=== PATIENT | male | born 1955 | race Hispanic/Latino ===

== ENCOUNTER 2017-12-18 12:44 | Outpatient (CLI) | payer MEDICARE, BC ==
--- NOTE | 2017-12-18 15:20 | MRI ---
CERVICAL SPINE MRI NONCONTRAST: Date: 12/18/17 COMPARISON: 10/08/13. INDICATION: Cervical radiculopathy. FINDINGS: There is no acute marrow edema. There is slight reversal of normal cervical curvature. Degenerative hypertrophy at the C1-2 level is present with mild effacement of the ventral CSF. C2-3: Disc osteophyte results in mild narrowing of the central canal. There is mild bilateral neural forami nal narrowing. C3-4: There is a moderate sized disc extrusion with cephalad migration of disc material, which is broad bas ed and effaces and mildly flattens the ventral aspect of the cervical spinal cord, with moderate cent ral canal stenosis. There is moderate narrowing of each neural foramen. C4-5: Mild to moderate central canal stenosis as a result of broad based disc osteophyte. Bilateral uncinat e process hypertrophy is present with moderate left and mild to moderate right neural foraminal narro wing. C5-6: Broad based disc osteophyte, asymmetric to the right, with superimposed right subarticular disc protr usion results in moderate central canal stenosis and associated cord flattening. Moderate biforaminal stenosis. C6-7: No high grade central canal or foraminal stenosis. C7-T1: No high grade central canal or neural foraminal stenosis. Evaluation of the cervical spine cord reveals no significant, intrinsic cord signal abnormality. IMPRESSION: Multilevel cervical spine degenerative change is again demonstrated, which is most pronounced at the C3-4 level, with a prominent sized cephalad disc extrusion, broad based, which has increased in volum e since prior exam, 10/08/13. This does result in ventral cord effacement. Multilevel central canal a nd neural foraminal compromise are present, as outlined above. POS: YUNIER
== END 2017-12-18 12:45 | disposition home or self-care (01) ==
LOC: TBSIIMAG 12:44
PROVIDERS: ATTEND Neurological Surgery
DX: M47.22 Other spondylosis with radiculopathy, cervical region (principal); M99.81 Other biomechanical lesions of cervical region; M48.02 Spinal stenosis, cervical region; M50.11 Cervical disc disorder with radiculopathy, high cervical region
CPT/HCPCS: 72141

== ENCOUNTER 2018-01-11 09:15 | Inpatient (IN) | payer MEDICARE, BC ==
[2018-01-11 10:30] VITALS: BMI 39.7
[2018-01-15] MEDS ORDERED: Midazolam HCl 2 mg/2 ml Vial ONE (06:38)
[2018-01-15] MEDS ORDERED: Fentanyl 250 MCG/5 ML VIAL ONE (06:38)
[2018-01-15] MEDS ORDERED: Sodium Chloride 0.9% 10 ML ONE (06:40)
[2018-01-15] MEDS ORDERED: Levofloxacin 500 mg/D5W 100 ml Premix Bag ONE (06:41)
[2018-01-15] MEDS ORDERED: Clindamycin/D5W 900 mg/50 ml Premix Bag ONE (06:41)
--- NOTE | 2018-01-15 08:28 | OP ---
DATE OF PROCEDURE: 01/15/2018 SURGEON: Elmer Pino M.D. POWER SHOVEL MECHANIC: Jhonathan Concepcion PA-C PROCEDURES PERFORMED: Anterior cervical diskectomy C3-C6, interbody arthrodesis, intervertebral biom echanical device, local morselized autograft, demineralized bone matrix, anterior titanium instrument ation C3-C6. DESCRIPTION OF PROCEDURE: The patient was brought to the operating room and intubated. He was posit ioned supine with the head in modest extension on a gel-filled donut. Incision was made exposing C3- C6 and the level was confirmed by x-ray. We completely removed the C3-C4, C4-C5 and C5-C6 discs deco mpressing at each level. At the C5-C6 level, particular attention was paid beneath the posterior akbar gitudinal ligament into the left C6 neural foramen. The bony endplates were then decorticated for th e purpose of arthrodesis and appropriately sized intervertebral biomechanical PEEK device was brought into the field, filled with demineralized bone matrix, local morselized autograft, and tapped into p lace securely at C3-C4, C4-C5 and C5-C6. Next, an anterior plate was brought into the field and secu red to C3, C4, C5, and C6 using two 14 mm screws at each level. The wound was then extensively irrig ated, immaculate hemostasis was secured, and the wound was closed in anatomic layers over a drain.
[2018-01-15] MEDS ORDERED: Ketorolac Tromethamine 30 MG/ML VIAL ONE (08:40)
[2018-01-15] MEDS ORDERED: Ondansetron HCl/PF 4 MG/2 ML Vial IVP PRN (08:43)
[2018-01-15] MEDS ORDERED: Promethazine HCl 25 MG/ML VIAL IM PRN (08:43)
[2018-01-15] MEDS ORDERED: Promethazine HCl 25 MG/ML VIAL SLOW IVP PRN (08:43)
[2018-01-15] MEDS ORDERED: Fentanyl 100 MCG/2 ML VIAL ONE ×2 (08:54→09:15)
[2018-01-15] MEDS ORDERED: Acetaminophen 325 MG TAB PO PRN (09:56)
[2018-01-15] MEDS ORDERED: Acetaminophen 650 MG Suppository PR PRN (09:56)
[2018-01-15] MEDS ORDERED: traMADol HCl 50 MG TAB PO PRN (09:56)
[2018-01-15] MEDS ORDERED: Morphine 4 MG/ML Carpuject SLOW IVP PRN (09:56)
[2018-01-15] MEDS: Morphine 4 MG/ML VIAL SLOW IVP PRN ×2 (10:15→16:52)
[2018-01-15] MEDS ORDERED: hydrALAZINE 20 MG/ML VIAL SLOW IVP PRN (12:31)
[2018-01-15] MEDS ORDERED: Labetalol HCl 100 MG/20 ML VIAL SLOW IVP PRN (12:31)
[2018-01-15] MEDS ORDERED: Eucerin (Mineral Oil/Petrolatum,White) 30 gm Jar TOP PRN (12:46)
[2018-01-15] MEDS ORDERED: Dextrose 5% in Water 1,000 ML IV PRN (12:47)
[2018-01-15] MEDS ORDERED: Insulin Regular 300 UNITS/3 ML VIAL SC PRN ×2 (12:47)
[2018-01-15] MEDS ORDERED: Dextrose 50% Abboject 50 ML SYRINGE SLOW IVP PRN (12:47)
[2018-01-15 13:15] LABS: Anion Gap 13 mmol/L (10-20); BUN (Urea Nitrogen) 21 mg/dL (8.4-25.7); Calc. Creatinine Clearance 118 mL/min (70-130); Calcium 9.1 mg/dL (7.8-10.44); Carbon Dioxide 25 mmol/L (23-31); Chloride 104 mmol/L (98-107); Estimated GFR-MDRD 74; Glucose 222 mg/dL (80-115); Potassium 5.2 mmol/L (3.5-5.1); Sodium 137 mmol/L (136-145)
--- NOTE | 2018-01-15 13:28 | PRG ---
DATE OF SERVICE: 01/15/2018 SUBJECTIVE: The patient is a 62-year-old male with diabetes, hypertension, and hyperlipidem ia, underwent an anterior cervical diskectomy by Dr. Pino this [facility] was consult ed for medical management. Patient follows Dr. michael Daley. He denies any complaints at this time ex cept for some discomfort over the surgical site. No chest pain, shortness of breath, palpitations re ported. PAST MEDICAL HISTORY: 1. Diabetes mellitus type 2. 2. Hypertension. 3. Hyperlipidemia. 4. Hospitalization at this facility in 2008 for pneumonia. 5. Obesity with a BMI 39.5. PAST SURGICAL HISTORY: 1. Bilateral shoulder surgery. 2. Knee surgery. ALLERGIES: The patient is allergic to PENICILLIN G. CURRENT HOME MEDICATIONS: Aspirin 81 mg daily; Lipitor 40 mg daily; gabapentin 300 mg b.i.d.; glimep iride 4 mg twice a day; 70/30, 25 units b.i.d.; lisinopril 40 mg daily; metformin 500 mg twice a day; tramadol as needed. SOCIAL HISTORY: The patient currently lives at home. Denies any current use of smoking, alcohol or drug use. He quit smoking in 2009. FAMILY HISTORY: Father with diabetes. Mother with stomach cancer. PHYSICAL EXAMINATION: VITAL SIGNS: Temperature 97.9, pulse rate of 93, respirations 16, blood pressure 125/76 with O2 satu ration 93% on 2 liter nasal cannula. GENERAL: A 62-year-old male in no apparent distress. LUNGS: Clear to auscultation bilaterally. HEART: S1, S2 present. Regular rate and rhythm. ABDOMEN: Soft, bowel sounds present. EXTREMITIES: No edema or calf tenderness. NEUROLOGICAL: Grossly nonfocal. LABORATORY AND IMAGING: EKG by my review showed sinus rhythm with left anterior fascicular block. C BC showed WBC 6.3 with hemoglobin 13.2, hematocrit 40.4, platelet count of 148. Chemistries showed s odium 139, potassium 5.6, chloride 106, bicarbonate 25, BUN 29, creatinine 1.08. IMPRESSION: 1. Diabetes mellitus type 2. We will continue glimepiride and metformin. We will change 70/30 insu marcelino to NPH during this hospital stay. 2. Hyperlipidemia. We will continue statins. 3. Hyperkalemia on the recent blood work. We will recheck base met. We will hold lisinopril for no w. We will add p.r.n. antihypertensives. 4. Hypertension. Plan as discussed above. 5. Chronic pain syndrome. We will continue gabapentin. 6. Obesity with a BMI at 39. Lifestyle modification emphasized. 7. Plan of care was discussed with the patient and the family at the bedside. They stated understan ding. Thank you Dr. Pino for this consultation. We will follow with you.
[2018-01-15] MEDS ORDERED: Metoclopramide HCl 10 MG/2 ML VIAL ONE (13:57)
[2018-01-15] MEDS ORDERED: Ondansetron HCl/PF 4 MG/2 ML Vial ONE (13:57)
[2018-01-15] MEDS ORDERED: Lidocaine 1% PF 5 ML VIAL ONE (13:57)
[2018-01-15] MEDS ORDERED: PROPOFOL 200 MG/20 ML VIAL ONE (13:57)
[2018-01-15] MEDS ORDERED: PHENYLEPHRINE-NS 100 MCG/ML 10 ML SYRINGE ONE (13:57)
[2018-01-15] MEDS: Clindamycin/D5W 900 MG in Premix Bag 1 BAG IVPB SCH ×2 (14:41→22:05)
[2018-01-15] MEDS: tiZANidine HCl 4 MG TAB PO PRN (14:42)
[2018-01-15] MEDS ORDERED: Insulin NPH/Reg Insulin Hm 300 UNITS/3 ML VIAL SC SCH ×2 (16:30→17:00)
[2018-01-15] MEDS: Senokot S 8.6-50 MG TAB PO SCH (16:45)
[2018-01-15] MEDS: metFORMIN 500 MG TAB PO SCH (16:45)
[2018-01-15] MEDS: Glimepiride 4 MG TAB PO SCH (16:45)
[2018-01-15] MEDS: Gabapentin 300 MG CAP PO SCH (20:03)
[2018-01-15] MEDS ORDERED: NPH, Human Insulin Isophane 300 UNIT/3 ML VIAL SC SCH (21:00)
[2018-01-16] MEDS: traMADol HCl 50 MG TAB PO PRN ×2 (02:07→10:06)
[2018-01-16 05:15] LABS: Potassium 5.6 mmol/L (3.5-5.1)
[2018-01-16] MEDS: Glimepiride 4 MG TAB PO SCH (06:13)
[2018-01-16] MEDS: tiZANidine HCl 4 MG TAB PO PRN (06:18)
--- NOTE | 2018-01-16 06:50 | DIS ---
DATE OF ADMISSION: 01/15/2018 DATE OF DISCHARGE: 01/16/2018 ATTENDING PHYSICIAN: Dr. Elmer Pino [facility] COURSE: The patient is a 62-year-old male status post C3-C6 ACDF for significant c ervical spondylosis. His postoperative course was uncomplicated. He was tolerating a regular diet, voiding appropriately, and ambulatory throughout the department. His ALESHIA drain put out 60 mL overnigh t and was removed the following morning. I am seeing the patient at the bedside this morning. He is awake, alert, comfortable, in no acute distress. He has a slightly hoarse voice. His incision is s oft and dry. He has free active range of motion of all extremities, 5/5 strength throughout. Sensat ion is intact to light touch. We will plan to dismiss the patient to home. I have discussed home care precautions. I provided him with scripts for [place] and Zanaflex. We will plan to follow up with him with his 2 week postoperati ve appointment.
[2018-01-16] MEDS ORDERED: Insulin NPH/Reg Insulin Hm 300 UNITS/3 ML VIAL SC SCH (08:00)
[2018-01-16] MEDS ORDERED: Atorvastatin Calcium 40 MG TAB PO SCH (09:00)
[2018-01-16] MEDS ORDERED: Amlodipine 5 MG TAB PO SCH (09:00)
[2018-01-16] MEDS ORDERED: Lisinopril 20 MG TAB PO SCH (09:00)
[2018-01-16] MEDS: metFORMIN 500 MG TAB PO SCH (09:51)
[2018-01-16] MEDS: Senokot S 8.6-50 MG TAB PO SCH (09:51)
[2018-01-16] MEDS: Gabapentin 300 MG CAP PO SCH (09:52)
--- NOTE | 2018-01-16 11:48 | PDOC.EVN ---
Event Note - Event Note Event Note: Pt seen and examined. Chart reviewed. repeat potassium still high. educated about holding Lisinopril and starting on new medication ,Amlodipine .prescription give. Encouraged to follow up w PCP as soon as possible. OK to Dc home from IM stand point. Advise repeat Potassium check in 1 week
[2018-01-16 12:24] VITALS: BP 112/74; TEMP 97.8
== END 2018-01-16 13:40 | disposition home or self-care (01) | DRG 473 ==
LOC: SURG A 01-15 06:02 → SURG B 01-15 09:49
PROVIDERS: ADMIT Neurological Surgery; ATTEND Neurological Surgery
PROC: 0RG20AJ Fusion of 2 or more Cervical Vertebral Joints with Interbody Fusion Device, Posterior Approach, Anterior Column, Open Approach (ICD-10-PCS; principal; 2018-01-15)
PROC: 0RT30ZZ Resection of Cervical Vertebral Disc, Open Approach (ICD-10-PCS; 2018-01-15)
PROC: 01N10ZZ Release Cervical Nerve, Open Approach (ICD-10-PCS; 2018-01-15)
DX: M47.22 Other spondylosis with radiculopathy, cervical region (principal); E11.9 Type 2 diabetes mellitus without complications; I10 Essential (primary) hypertension; E78.5 Hyperlipidemia, unspecified; E66.9 Obesity, unspecified; Z68.39 Body mass index [BMI] 39.0-39.9, adult; Z88.0 Allergy status to penicillin; Z79.82 Long term (current) use of aspirin; Z79.899 Other long term (current) drug therapy; E87.5 Hyperkalemia; G89.4 Chronic pain syndrome
CPT/HCPCS: 36415; 36416; 76001; 80048; 84132; A4216; C1713; C1776; J1815; J1885; J1956; J2001; J2250; J2270; J2405; J2704; J2765; J3010; J3490

== ENCOUNTER 2018-01-11 10:07 | Outpatient (CLI) | payer MEDICARE, BC ==
[2018-01-11 11:55] LABS: Hemoglobin 13.2 g/dL (14.0-18.0); Mean Corpuscular HGB CONC 32.7 g/dL (32.0-36.0); Mean Corpuscular Hemoglobin 28.4 pg (27.0-31.0); Mean Corpuscular Volume 86.9 fL (78.0-98.0); Mean Platelet Volume 10.9 fL (7.4-10.4); Platelet Count 148 thou/uL (130-400); RBC Distribution Width 12.2 % (11.5-14.5); Red Blood Cell (RBC) Count 4.64 mill/uL (4.70-6.10); White Blood Cell (WBC) Count 6.3 thou/uL (4.8-10.8)
[2018-01-11 12:19] LABS: Anion Gap 14 mmol/L (10-20); BUN (Urea Nitrogen) 29 mg/dL (8.4-25.7); Calc. Creatinine Clearance 0 mL/min (70-130); Calcium 9.5 mg/dL (7.8-10.44); Carbon Dioxide 25 mmol/L (23-31); Chloride 106 mmol/L (98-107); Estimated GFR-MDRD 69; Glucose 187 mg/dL (80-115); Potassium 5.6 mmol/L (3.5-5.1); Sodium 139 mmol/L (136-145)
--- NOTE | 2018-01-13 17:53 | EKG ---
Test Reason : Blood Pressure : / mmHG Vent. Rate : 076 BPM Atrial Rate : 076 BPM P-R Int : 196 ms QRS Dur : 104 ms QT Int : 356 ms P-R-T Axes : 016 -72 005 degrees QTc Int : 400 ms Normal sinus rhythm Left anterior fascicular block Abnormal ECG When compared with ECG of 09-SEP-2012 17:48, No significant change was found Confirmed by EMANUEL DISLA (2) on 01/13/2018 5:52:51 PM Referred By: LOGAN Confirmed By:EMANUEL DISLA
== END 2018-01-11 10:08 | disposition home or self-care (01) ==
LOC: LABBT 10:07
PROVIDERS: ATTEND Neurological Surgery
DX: Z01.818 Encounter for other preprocedural examination (principal); M54.12 Radiculopathy, cervical region
CPT/HCPCS: 80048; 85027; 93005; 93010

== ENCOUNTER 2018-01-30 11:05 | Outpatient (CLI) | payer MEDICARE, BC ==
--- NOTE | 2018-01-30 13:54 | RAD ---
CERVICAL SPINE THREE VIEWS: HISTORY: A 62-year-old male with a history of cervical radicular pain following surgery. FINDINGS: Anterior cervical fusion changes are noted at C3, C4, C5, and C6, with an intradiskal prosthesis. Th ere is some diffuse prevertebral soft tissue swelling, probably residual from prior surgery. C7 and C7-T1 are partially obscured on the lateral views. The tip of the odontoid and portions of C1 are ob scured on the AP open-mouth views. There is no evidence for malalignment involving the visualized C- spine. IMPRESSION: 1. Postoperative anterior cervical fusion changes at C3, C4, C5, and C6, without significant malalig nment. 2. Diffuse prevertebral soft tissue swelling. POS: YUNIER
== END 2018-01-30 11:06 | disposition home or self-care (01) ==
LOC: TBSIIMAG 11:05
PROVIDERS: ATTEND Neurological Surgery
DX: M54.12 Radiculopathy, cervical region (principal); M79.89 Other specified soft tissue disorders; Z98.1 Arthrodesis status
CPT/HCPCS: 72040

== ENCOUNTER 2018-03-27 13:33 | Outpatient (CLI) | payer MEDICARE, BC ==
--- NOTE | 2018-03-27 16:04 | RAD ---
CERVICAL SPINE FOUR VIEWS: 03/27/18 HISTORY: Surgery. Neck pain. COMPARISON: 01/27/18 FINDINGS: Anterior fixation hardware at the C3-4-5-6 levels is again demonstrated. Metallic markers associated with interbody fusion material is in the confines of the disc spaces at the postoperative levels. No acute fracture or dislocation. Alignment is anatomic. IMPRESSION: Stable postoperative appearance of the cervical spine. POS: ESTEHR
== END 2018-03-27 13:34 | disposition home or self-care (01) ==
LOC: TBSIIMAG 13:33
PROVIDERS: ATTEND Neurological Surgery
DX: M54.12 Radiculopathy, cervical region (principal); Z98.1 Arthrodesis status
CPT/HCPCS: 72040

== ENCOUNTER 2018-04-28 09:26 | Emergency (ER) | payer MEDICARE, BC ==
[2018-04-28 09:57] LABS: Bilirubin Negative (Negative); Blood, Urine Negative (Negative); Clarity CLEAR (Clear); Glucose, Urine (Dipstick) >=1000 mg/dL (Negative); Leukocyte Negative (Negative); Nitrite Negative (Negative); Protein, Urine (Dipstick) 30 mg/dL (Neg-Trace); Specific Gravity, Urine 1.033 (1.002-1.036)
[2018-04-28 09:59] LABS: Pathc Cast-AUWi Flag 0.14 (0-2.49)
[2018-04-28 10:00] LABS: Sperm-AUWi Flag 162.8 (0-9.9)
[2018-04-28 10:07] LABS: Bacteria/HPF None Seen HPF (None Seen); RBC/HPF 0-3 HPF (0-3); Squamous Epithelial None Seen HPF (0-3); WBC/HPF 0-3 HPF (0-3)
[2018-04-28 10:08] LABS: Hyaline Casts/LPF 0-3 HYALINE CAST LPF (0-3 Hyaline); Yeast-All Forms 1+ HPF (None Seen)
[2018-04-28] MEDS ORDERED: Bacitracin Zinc 1 Packet ONE (10:34)
--- NOTE | 2018-04-28 17:04 | CON ---
DATE OF CONSULTATION: ER PROCEDURE NOTE HISTORY OF PRESENT ILLNESS: This is a 62-year-old male, who speaks Kinyarw[place], I was asked to see this morning acutely for paraphimosis. He pulled his foreskin back last night and he has not been able to replace it. He pulls it back to keep it clean. It has become tight on him, but generally he can replace it. He had the same problem 10 years ago and had circumcision done at [facility] and he started to have problems again. He has been able to urinate. The urine that was done here showed 0 to 3 red cells, 0 to 3 white cells, 1+ yeast, no bacteria. Does not have a fever. The [facility] that saw him was concerned his tip of the penis was somewhat dusky. On his exam, he does appear to have some balanitis and cracking of the foreskin. The distal aspect of the foreskin is still retracted past the glans, so he does have a paraphimosis. There is nothing to suggest a cellulitis right now and there is nothing to suggest devascularized glandular tissue or mucosa. Was able to easily reduce the glans and head of the penis past the obstructing ring to get it returned to its normal anatomic position. I spoke with [facility], who gets him triple antibiotic ointment applied, elected to leave him here for 45 minutes or so to be sure he does not have any further problems related to this. I would not think he would require any antibiotics unless things look differently when I re-examine him. I do think he should get back in touch with his urologist at [facility] and consider having the circumcision or dorsal slit done, thus he has developed again another tight band of foreskin and until then, I think he should not retract the foreskin for any reason. Job ID: [id number]
== END 2018-04-28 12:16 | disposition home or self-care (01) ==
LOC: ERS 09:26
DX: N47.2 Paraphimosis (principal); N48.1 Balanitis; E11.9 Type 2 diabetes mellitus without complications; Z79.4 Long term (current) use of insulin; Z87.891 Personal history of nicotine dependence
CPT/HCPCS: 81003; 81015; 87077; 87086; 99283

== ENCOUNTER 2018-09-03 15:48 | Outpatient (CLI) | payer MEDICARE, BC ==
--- NOTE | 2018-09-03 17:12 | MRI ---
Exam: MRI cervical spine without contrast HISTORY: Cervical radiculopathy. Cervical fusion.. COMPARISON: 12/10/2017 FINDINGS: Interval placement of a anterior fusion plate with transvertebral body screw from C3 to C6. Associat ed metallic susceptibility artifact. Limited evaluation the marrow signal at the level of fusion. Straightening of normal cervical lordosis is unchanged. No STIR hyperintensity to suggest vertebral b gregor edema or ligamentous injury. Visualized brain parenchyma, cervical medullary junction, cervical cord and the upper thoracic cord h ave a normal size and intensity. C2-C3: No significant central canal stenosis. Right neural foramen is patent. Minimal left foraminal narrowing. C3-C4: Central osteophyte complex of bases and obliterates the ventral subarachnoid space. Mild mass effect upon the midline aspect of the cord without cord signal hyperintensity. Mild central canal stenosis. Mild right and mild to moderate left foraminal narrowing. C4-C5: Broad-based osteophyte ridge abuts and effaces the ventral subarachnoid space. Mild central ca nal stenosis. No cord signal abnormality. Moderate bilateral foraminal narrowing. C5-C6: Broad-based discussed by ridge does not cause any significant central canal stenosis. Mild rig ht and moderate left foraminal narrowing. C6-C7: Central disc bulge abuts the thecal sac. No significant central canal stenosis. Neural foramin a are patent. C7-T1: No significant central canal stenosis or neural foraminal narrowing. IMPRESSION: 1. Interval cervical fusion from C3 through C6. Stable straightening of normal cervical lordosis. 2. Degenerative changes of the cervical spine as detailed above. There is significant central canal s tenosis with effacement of the ventral subarachnoid space and deformity the cervical cord at C3-C4. No significant cord signal abnormality. The degree of central canal stenosis at C3-C4 has not signifi cant change. 3. Varying degrees of neural foraminal stenosis as detailed above. Transcribed Date/Time: 09/03/2018 5:19 PM
== END 2018-09-03 15:49 | disposition home or self-care (01) ==
LOC: TBSIIMAG 15:48
PROVIDERS: ATTEND Psychiatry & Neurology Neurology
DX: M47.22 Other spondylosis with radiculopathy, cervical region (principal); M48.02 Spinal stenosis, cervical region; Z98.1 Arthrodesis status
CPT/HCPCS: 72141

== ENCOUNTER 2018-11-06 07:15 | Day surgery (SDC) | payer MEDICARE, BC ==
[2018-11-05 13:56] VITALS: BMI 39.7
--- NOTE | 2018-11-06 09:33 | RAD ---
Myelogram of Cervical spine CLINICAL HISTORY: Pain, left upper extremity radiculopathy, myelopathy PROCEDURE: Informed consent was obtained. Straightening Machine Feeder imaging was performed. Patient was placed in a prone position and the skin of the low back was prepped and draped in a standard sterile fashion. Topical anesthesia was achieved with buffered 1% lidocaine. 22-gauge spinal needle was then advanced uneventf ully into the thecal sac from a posterior para midline approach at the rightL4-5level. 9 cc of radiopaque contrast was instilled under low pressure into the thecal sac, upon return of clear colorl ess CSF the needle hub. Imaging was stored for documentation. Needle was removed. Patient tolerated the procedure well, without complication evident. Patient was then transferred to CT to undergo subsequent CT myelogram imaging. Reference separate justin qiu(s) for additional details. FINDINGS: Intraoperative imaging reveals a needle overlying the lumbar spinal canal, with subsequent instillation of radiopaque contrast within the thecal sac. Fluoroscopy data: 0.1minutes IMPRESSION: Technically successful cervical myelogram, as above.
--- NOTE | 2018-11-06 09:43 | CT ---
CT CERVICAL SPINE WITH CONTRAST: CT CERVICAL MYELOGRAM: HISTORY: Neck Pain. Right upper extremity radiculopathy/myelopathy. COMPARISON: Reference made to 09/03/2018 MRI cervical spine. FINDINGS: The craniocervical junction is intact. There is anterior fusion spanning C3 through C6, with anterior metallic plate and two vertebral body screws at each level. Intervening disc space prostheses of the C3-4, C4-5, and C5-6 levels present. There is straightening of the normal cervical curvature. Degenerative sclerosis of the cer vical vertebrae is demonstrated. C1-2: No significant stenosis. C2-3: Disc osteophyte with slight effacement of the ventral thecal sac. There is bilateral uncinate process hypertrophy with mild bilateral neural foraminal narrowing, left greater than right. C3-4: Broad-based osteophyte ridge with moderate central canal stenosis and ventral cord effacement. There is moderate bilateral neural foraminal stenosis C4-5: Broad-based osteophyte ridge with moderate central canal stenosis. Moderate bilateral neural foraminal stenosis, left greater than right. C5-6: Broad-based osteophyte ridge with focal central component. Mild effacement of ventral thecal sac. Moderate right and mild left neural foraminal stenosis. C6-7: Trace spondylolisthesis. Mild central canal stenosis and mild left ventral hemicord flattenin g. No significant foraminal stenosis. C7-T1: No significant stenosis. IMPRESSION: 1. Anterior fusion spanning the C3 through C6 level. 2. There is multilevel osseous compromise of the contents of the vertebral canal and neural foramina with associated ventral cord effacement, as discussed above. 3. There is limited visualization due to prominent streak artifact from metallic hardware. Transcribed Date/Time: 11/06/2018 10:23 AM
[2018-11-06 10:13] VITALS: BP 144/96; TEMP 97.7
[2018-11-06] MEDS ORDERED: Iopamidol-M 300 61% 15 ML VIAL ONE (13:49)
== END 2018-11-06 10:00 | disposition home or self-care (01) ==
LOC: RAD 07:15 → EDSTATUS 08:00 → RAD 10:00
PROVIDERS: ATTEND Neurological Surgery
PROC: B02B1ZZ Computerized Tomography (CT Scan) of Spinal Cord using Low Osmolar Contrast (ICD-10-PCS; principal; 2018-11-06)
DX: M48.02 Spinal stenosis, cervical region (principal); M54.12 Radiculopathy, cervical region; E11.9 Type 2 diabetes mellitus without complications; I10 Essential (primary) hypertension; E78.00 Pure hypercholesterolemia, unspecified; F10.10 Alcohol abuse, uncomplicated; F19.10 Other psychoactive substance abuse, uncomplicated; Z98.1 Arthrodesis status; Z87.891 Personal history of nicotine dependence; Z88.0 Allergy status to penicillin; Z79.4 Long term (current) use of insulin; Z79.82 Long term (current) use of aspirin; Z79.899 Other long term (current) drug therapy
CPT/HCPCS: 62302; 72126; Q9967

== ENCOUNTER 2019-01-14 09:43 | Outpatient (CLI) | payer MEDICARE, BC ==
[2019-01-14 10:58] LABS: #Eosinphils 0.3 thou/uL (0.0-0.7); #Lymphocytes 1.5 thou/uL (1.20-3.40); #Monocytes 0.6 thou/uL (0.11-0.59); #Neutrophils 4.7 thou/uL (1.40-6.50); %Basophils 0.6 % (0.0-1.0); %Eosinophils 4.1 % (0.0-10.0); %Lymphocytes 20.8 % (21.0-51.0); %Monocytes 8.6 % (0.0-10.0); %Neutrophils 65.9 % (42.0-75.0); Hemoglobin 13.2 g/dL (14.0-18.0); Mean Corpuscular HGB CONC 34.4 g/dL (32.0-36.0); Mean Corpuscular Hemoglobin 29.9 pg (27.0-31.0); Platelet Count 137 thou/uL (130-400); RBC Distribution Width 11.6 % (11.5-14.5); White Blood Cell (WBC) Count 7.1 thou/uL (4.8-10.8)
== END 2019-01-14 09:44 | disposition home or self-care (01) ==
LOC: LABBT 09:43
PROVIDERS: ATTEND Orthopaedic Surgery
DX: Z01.812 Encounter for preprocedural laboratory examination (principal); G56.02 Carpal tunnel syndrome, left upper limb
CPT/HCPCS: 85025

== ENCOUNTER 2019-01-15 08:24 | Day surgery (SDC) | payer MEDICARE, BC ==
[2019-01-14 09:48] VITALS: BMI 37.3
[2019-01-15] MEDS ORDERED: Clindamycin/D5W 600 mg/50 ml Premix Bag ONE (09:16)
[2019-01-15] MEDS ORDERED: Lidocaine 1% (PF) 30 ML VIAL ONE (10:39)
[2019-01-15] MEDS ORDERED: Fentanyl 100 MCG/2 ML VIAL ONE (10:45)
[2019-01-15] MEDS ORDERED: HYDROcodone/Acetaminophen 10/325 mg Tablet ONE (12:12)
--- NOTE | 2019-01-15 16:30 | OP ---
DATE OF PROCEDURE: 01/15/2019 PREOPERATIVE DIAGNOSIS: Left carpal tunnel syndrome. POSTOPERATIVE DIAGNOSIS: Left carpal tunnel syndrome. PROCEDURES PERFORMED: 1. Left open carpal tunnel release. 2. Placement of short-arm volar splint left upper extremity. VP LEGAL AFFAIRS: None. ESTIMATED BLOOD LOSS: Minimal. COMPLICATIONS: None. ANESTHESIA: The patient did have a TIVA with a local. DISPOSITION: He went to Day Stay in stable condition. INDICATIONS: Mr. Verma is a 63-year-old male, who comes in complaining of numbness and tingling in his hand with an EMG/NCV states he has severe carpal tunnel syndrome. At this time, he opted for surgical release of the nerve. TOURNIQUET TIME: minutes. DESCRIPTION OF PROCEDURE: After all appropriate consent forms were explained and signed, the patient was taken back to the operating room and at this time was given IV sedation. A well-padded tourniquet was placed on the left arm and the arm was then prepped and draped in the standard surgical fashion. The incision was then drawn out and infiltrated with plain lidocaine. Limb was exsanguinated and tourniquet taken up to 250 mmHg. At this time, using Loupe magnification, a 15 blade was used to incise down through skin. Bipolar cautery was used to coagulate any brisk venous bleeding. We then placed a small hemostat to protect the underlying median nerve and transected the transverse carpal ligament using multiple 15 blades as well as scissors. Once this was done, a small finger was inserted to palpate for any remaining bands. At this time, a moist Ray-Lydia sponge was placed into the wound. Tourniquet was let down and pressure was held. Bipolar cautery used to coagulate any brisk venous bleeding. The wound was then irrigated with saline solution and we then evaluated the nerve. The nerve was found to be significantly injected, the nerve was intact, there were no masses noted, and the underlying flexor tendons were in good condition. At this time, we irrigated and dried the wound. We then placed multiple nylon stitches to close the incision. A bulky sterile hand dressing and a small volar splint were then placed. The patient was then awakened and taken to recovery in stable condition. All counts were correct at the end of the case. The patient received preoperative IV antibiotics. Job ID: [id number]
== END 2019-01-15 12:33 ==
LOC: SDC 08:24
PROVIDERS: ATTEND Orthopaedic Surgery
PROC: 01N50ZZ Release Median Nerve, Open Approach (ICD-10-PCS; principal; 2019-01-15)
DX: G56.02 Carpal tunnel syndrome, left upper limb (principal); E11.9 Type 2 diabetes mellitus without complications; E78.00 Pure hypercholesterolemia, unspecified; I10 Essential (primary) hypertension; Z87.891 Personal history of nicotine dependence; Z88.0 Allergy status to penicillin
CPT/HCPCS: J2001; J3010; J3490